=== PATIENT | male | born 1940 | race Caucasian/White ===

== ENCOUNTER 2017-02-12 14:11 | Emergency (ER) | payer MEDICARE ==
[2017-02-12 16:28] VITALS: BP 145/66
--- NOTE | 2017-02-12 16:32 | ED ---
Upper Extremity Pain - HPI Summary HPI Summary: 76 male presents with complaints of right elbow pain and swelling that has been ongoing for the past couple of weeks and has worsened over the last few days. Patient has been taking his prescribed anti-inflammatory medication and hydrocodone for back pain that has been ongoing for the past couple of days. Does not give much relief. States fluid build up has just been worsening. Has had it drained once before but it just came back and upon the second time of draining was unable to get any fluid from area. Patient is visiting from [place]. PMHx significant for myasenthia gravis. Denies any known trauma/injury and numbness/tingling. Is right hand dominant. No other complaints at this time. Denies redness, warmth and fever/chills. - History of Current Complaint Chief Complaint: EDExtremityUpper Stated Complaint: INFLAMMATION ON RT ELBOW Time Seen by Provider: 02/12/17 15:00 Hx Obtained From: Patient Mechanism Of Injury: Unknown Onset/Duration: Started Weeks Ago, Still Present, Worse Since Timing: Constant Severity Initially: Mild Severity Currently: Mild Pain Location: Elbow - right elbow Character: Aching Aggravating Factor(s): Movement - palpation Alleviating Factor(s): Nothing Associated Signs & Symptoms: Positive: Swelling Related History: Dominant Hand Right - Allergies/Home Medications Allergies/Adverse Reactions: Allergies Allergy/AdvReac Type Severity Reaction Status Date / Time No Known Allergies Allergy Verified 02/12/17 15:01 PMH/Surg Hx/FS Hx/Imm Hx Endocrine/Hematology History: Denies: Hx Diabetes Cardiovascular History: Reports: Hx Hypertension Musculoskeletal History: Reports: Hx Bursitis, Other Musculoskeletal History - myasenthia gravis - Surgical History Surgery Procedure, Year, and Place: n/a - Immunization History Immunizations Up to Date: Yes Infectious Disease History: No Infectious Disease History: Denies: Traveled Outside the [place] in Last 30 Days - Family History Known Family History: Positive: None - Social History Alcohol Use: None Substance Use Type: Reports: None Smoking Status (MU): Never Smoked Tobacco Review of Systems Constitutional: Negative Cardiovascular: Negative Respiratory: Negative Positive: Arthralgia, Myalgia, Edema - right elbow Skin: Negative Neurological: Negative All Other Systems Reviewed And Are Negative: Yes Physical Exam Triage Information Reviewed: Yes Vital Signs On Initial Exam: Initial Vitals Temp Pulse Resp BP Pulse Ox 98.5 F 89 20 155/75 96 02/12/17 14:20 02/12/17 14:20 02/12/17 14:20 02/12/17 14:20 02/12/17 14:20 BP improved 144/66 Vital Signs Reviewed: Yes Appearance: Positive: Well-Appearing, No Pain Distress, Well-Nourished Skin: Positive: Warm, Skin Color Reflects Adequate Perfusion, Dry. Negative: Cold, Numb, Cyanosis @, Pale, Erythema @ Head/Face: Positive: Normal Head/Face Inspection Eyes: Positive: Conjunctiva Clear ENT: Positive: Hearing grossly normal Neck: Positive: Supple, Nontender Respiratory/Lung Sounds: Positive: Clear to Auscultation, Breath Sounds Present. Negative: Rales, Rhonchi, Wheezes Cardiovascular: Positive: Normal, RRR, Pulses are Symmetrical in both Upper and Lower Extremities - 2+ radial b/l. Negative: Murmur, Rub Musculoskeletal: Positive: Strength/ROM Intact, Pain @ - right elbow with palpation, Edema Right - elbow, burisits, also noted a more distal fluid filled sac under elbow joint, chronic, Other - no sign of erythema, warmth of infection at right elbow, no sign of septic buristis at this time. Negative: Interruption @, Abnormal @ Neurological: Positive: Normal, Sensory/Motor Intact - sensation intact, Alert, Oriented to Person Place, Time, Normal Gait Psychiatric: Positive: Affect/Mood Appropriate Diagnostics - Vital Signs Vital Signs Temp Pulse Resp BP Pulse Ox 02/12/17 14:20 98.5 F 89 20 155/75 96 - Laboratory Lab Statement: Any lab studies that have been ordered have been reviewed, and results considered in the medical decision making process. Course/Dx - Course Course Of Treatment: no new trauma or injury, not necessary for x-ray at this time. patient has chronic bursitis that appears to be worsening. does not appear septic. no concern for infection. continue NSAIDs and pain medication. Due to appearance and complicated history, with treatment of bursitis is to leave it as it is self limiting, will not drain at this time. Complications of infection versus filling back up with fluid if were to drain. Avoided at this time. Try conservative measures such as compression and ice. Follow up ortho. No emergent etiology at this time, normal vitals. Aware of worsening signs and symptoms to watch out for and to return if occur. - Diagnoses Differential Diagnosis/HQI/PQRI: Positive: Bursitis, Contusion, Strain, Sprain Provider Diagnoses: Olecranon bursitis, right elbow Discharge - Discharge Plan Condition: Stable Disposition: HOME Patient Education Materials: Elbow Bursitis (ED) Referrals: Non Staff,Doctor [Primary Care Provider] - Estiven Hagan MD [Medical Doctor] - Additional Instructions: [facility] to have [facility]itis properly drained. If you develop signs of infection such as redness, swelling, warmth, or fever/ chills please seek medical attention immediately. Apply jesus bandage for compression, NSAIDs and cool compresses. Refrain from overuse.
== END 2017-02-12 16:26 | disposition home or self-care (01) ==
LOC: ED 14:11
DX: M70.21 Olecranon bursitis, right elbow (principal); I10 Essential (primary) hypertension
CPT/HCPCS: 99281